=== PATIENT | female | born 1960 | race Caucasian/White ===

== ENCOUNTER → 2017-02-11 | Outpatient (CLI) | payer OTHER ==
[~2017-02-11] MED LIST: AMLO10TA2 PO; AMLO10TA4 PO; ASPI-496 PO; ASPI-621 PO; ATOR40TA PO; CALC-452 PO; CALC625T13 PO; CHOL2000 PO; CINN500C2 PO; CLOP75TA22 PO; EPIN0.3P3 IM; ERGO500017 PO; FISH1CAP PO; FLUT50DI INH; IRON1TAB62 PO; LEVA15HF2 INH; LEVO112T2 PO; LEVO150T PO; LIOT5TAB3 PO; LISI-167 PO; LOSA1TAB16 PO; MONT10TA9 PO; NIAC500C8 PO; PRAS10TA4 PO; SELE200T2 PO; SENN1TAB67 PO
[2017-02-11 09:40] LABS: BLOOD UREA NITROGEN 12 mg/dL (7-18)
[2017-02-11 09:43] LABS: ASPARTATE AMINO TRANSFERASE 22 U/L (15-37)
== END | disposition home or self-care (01) ==
LOC: STAR 08:15
PROVIDERS: ATTEND Surgery
DX: Z01.818 Encounter for other preprocedural examination (principal)
CPT/HCPCS: 36415; 80053; 93005

== ENCOUNTER 2017-02-16 15:15 | Day surgery (SDC) | payer OTHER ==
[~2017-02-16] VITALS: Ht 175.3 cm; Wt 100.0 kg
[~2017-02-16 15:15] MED LIST changes: +CEFAZOLIN 1,000 MG ONE; +DEXAMETHASONE 4 MG/ML, 5ML ONE; +FENTANYL PF 100 MCG/2ML ONE; +GLYCOPYRROLATE 0.2MG/1ML ONE; +NEOSTIGMINE 1 MG/ML, 10ML ONE; +OMNIPAQUE 350 MG/ML, 50 ML BOTTLE ONE; +ONDANSETRON 2MG/ML, 2ML ONE; +PROPOFOL 10 MG/ML, 20ML ONE; +ROCURONIUM 10 MG/ML ONE; +SUCCINYLCHOLINE 20 MG/ML, 10ML ONE
[2017-02-16] MEDS ORDERED: FENTANYL PF 100 MCG/2ML ONE ×2 (15:56→16:19)
[2017-02-16] MEDS ORDERED: OXYcodone 5 MG/5 ML ORAL.SOL UDC ONE (16:19)
[2017-02-16] MEDS ORDERED: ONDANSETRON 2MG/ML, 2ML ONE (16:36)
[2017-02-16] MEDS ORDERED: HYDROmorphone 1 MG/ML, 1ML ONE (16:36)
[2017-02-17] MEDS ORDERED: HYDROmorphone 1 MG/ML, 1ML IV PRN (14:30)
[2017-02-17] MEDS ORDERED: FENTANYL PF 100 MCG/2ML IV PRN (14:30)
[2017-02-17] MEDS ORDERED: OXYcodone 5 MG/5 ML ORAL.SOL UDC PO PRN (14:30)
[2017-02-19] MEDS ORDERED: LACTATED RINGERS 1,000 ML IV SCH (10:29)
== END 2017-02-16 18:55 | disposition home or self-care (01) ==
LOC: OR 15:15
PROVIDERS: ATTEND Surgery
DX: K82.4 Cholesterolosis of gallbladder (principal); K76.0 Fatty (change of) liver, not elsewhere classified; K75.9 Inflammatory liver disease, unspecified; I25.10 Atherosclerotic heart disease of native coronary artery without angina pectoris; I10 Essential (primary) hypertension; J45.909 Unspecified asthma, uncomplicated; I25.2 Old myocardial infarction; Z90.710 Acquired absence of both cervix and uterus; E89.0 Postprocedural hypothyroidism; Z88.8 Allergy status to other drugs, medicaments and biological substances; Z82.61 Family history of arthritis; Z80.0 Family history of malignant neoplasm of digestive organs; Z83.3 Family history of diabetes mellitus; Z82.3 Family history of stroke; Z82.49 Family history of ischemic heart disease and other diseases of the circulatory system
CPT/HCPCS: 47379; 47563; 74300; 88304; 88307; J0330; J0690; J1100; J1170; J2405; J2704; J2710; J3010; Q9967; J3490